=== PATIENT | female | born 1960 | race Caucasian/White ===

== ENCOUNTER 2018-03-18 20:22 | Inpatient (IN) | payer OTHER ==
[~2018-03-18] VITALS: Ht 167.6 cm; Wt 64.2 kg
[2018-03-18] MEDS ORDERED: NIFE30TA83 PO (20:58)
[2018-03-18] MEDS ORDERED: SIMV10TA6 PO (20:58)
[2018-03-18] MEDS ORDERED: NIFEDIPINE XL 30MG TAB PO ONE (21:15)
[2018-03-18] MEDS ORDERED: ASPIRIN 81MG TABLET PO ONE (21:15)
[2018-03-18 21:46] LABS: CLARITY URINE CLEAR (CLEAR); COLOR URINE YELLOW (YELLOW); KETONES URINE NEGATIVE (NEGATIVE); LEUKOCYTE ESTERASE URINE NEGATIVE (NEGATIVE); NITRITE URINE NEGATIVE (NEGATIVE); OCCULT BLOOD URINE 1+ (NEGATIVE); PH URINE 7.5 (4.5-8.0); PROTEIN URINE NEGATIVE (NEGATIVE); SPECIFIC GRAVITY URINE 1.005 (1.005-1.030); UROBILINOGEN URINE 0.2 E.U./dL (0.2-1.0)
[2018-03-18 21:58] LABS: EOSINOPHILS % 6.4 % (0.0-5.0); HEMATOCRIT. 40.4 % (36.0-48.0); LYMPHOCYTES % 50.7 % (20.0-50.0); MEAN CORPUSCULAR HEMOGLOBIN 29.4 pg (28.0-32.0); MEAN CORPUSCULAR VOLUME 84.6 fL (81.0-99.0); MEAN PLATELET VOLUME 9.2 fl (7.4-10.4); MONOCYTES % 6.6 % (2.0-8.0); NEUTROPHILS % 35.3 % (40.0-76.0); PLATELET 277 x1000/uL (130-400); RED BLOOD CELL COUNT 4.77 mill/uL (4.2-5.4); RED CELL DISTRIBUTION WIDTH 13.7 % (11.6-14.6)
[2018-03-18 22:02] LABS: CHLORIDE 105 mEq/L (98-107)
[2018-03-18 22:06] LABS: PARTIAL THROMBOPLASTIN TIME 25.8 sec (23.4-31.0); PROTHROMBIN TIME 9.7 sec (9.1-11.1)
[2018-03-19 02:00] VITALS: BP 129/68
[2018-03-19 04:00] VITALS: BP 129/68
[2018-03-19] MEDS ORDERED: NON FORMULARY PATIENT HOME MED XX SCH (05:15)
[2018-03-19] MEDS ORDERED: ACETAMINOPHEN 325MG TABLET PO PRN (05:15)
[2018-03-19 08:00] VITALS: BP 132/73
[2018-03-19] MEDS: ASPIRIN 81MG TABLET PO SCH (08:51)
[2018-03-19] MEDS: NIFEDIPINE XL 30MG TAB PO SCH (08:52)
[2018-03-19 10:49] LABS: BASOPHILS % 1.3 % (0.0-2.0); EOSINOPHILS % 6.7 % (0.0-5.0); HEMATOCRIT. 39.4 % (36.0-48.0); HEMOGLOBIN. 13.3 g/dL (12.0-16.0); LYMPHOCYTES % 47.4 % (20.0-50.0); MEAN CORPUSCULAR HEMOGLOBIN 28.7 pg (28.0-32.0); MEAN CORPUSCULAR VOLUME 84.9 fL (81.0-99.0); MEAN PLATELET VOLUME 8.9 fl (7.4-10.4); NEUTROPHILS % 36.6 % (40.0-76.0); PLATELET 251 x1000/uL (130-400); RED BLOOD CELL COUNT 4.64 mill/uL (4.2-5.4); RED CELL DISTRIBUTION WIDTH 13.7 % (11.6-14.6)
[2018-03-19 11:02] LABS: CHLORIDE 106 mEq/L (98-107)
[2018-03-19 11:08] LABS: LDL CHOLESTEROL 85 mg/dL (5-100)
[2018-03-19 11:10] LABS: HDL CHOLESTEROL 44 mg/dL (40-59)
[2018-03-19 11:14] LABS: *AMPHETAMINES SCREEN URINE NEGATIVE (NEGATIVE); *BENZODIAZEPINES SCREEN URINE NEGATIVE (NEGATIVE); *COCAINE SCREEN URINE NEGATIVE (NEGATIVE)
[2018-03-19 11:15] LABS: CANNABINOID URINE SCREEN NEGATIVE (NEGATIVE); PHENCYCLIDINE URINE SCREEN NEGATIVE (NEGATIVE)
[2018-03-19 11:39] LABS: *BARBITURATES SCREEN URINE NEGATIVE (NEGATIVE); METHADONE URINE SCREEN NEGATIVE (NEGATIVE); OPIATES URINE SCREEN NEGATIVE (NEGATIVE)
[2018-03-19 12:00] VITALS: BP 110/60
[2018-03-19 15:37] VITALS: BP 124/68
[2018-03-19 18:07] LABS: CREATINE KINASE MB FRACTION 1.6 ng/mL (0.5-3.6)
[2018-03-19 20:00] VITALS: BP 117/71
[2018-03-19] MEDS ORDERED: ATORVASTATIN CALCIUM 10MG TABLET PO SCH (21:00)
[2018-03-20] VITALS: BP 112/66
[2018-03-20 04:00] VITALS: BP 128/75
[2018-03-20 08:00] VITALS: BP 131/61
[2018-03-20] MEDS: ASPIRIN 81MG TABLET PO SCH (09:31)
[2018-03-20] MEDS: NIFEDIPINE XL 30MG TAB PO SCH (09:31)
[2018-03-20] MEDS ORDERED: LOSARTAN POTASSIUM 25 MG TABLET PO SCH (09:45)
[2018-03-20] MEDS ORDERED: IOHEXOL-300 100 ML BOTTLE ONE (11:22)
[2018-03-20 12:00] VITALS: BP 138/61
[2018-03-20] MEDS ORDERED: LOSA25TA3 PO (14:36)
[2018-03-20] MEDS ORDERED: ASPI-1160 PO (14:36)
[2018-03-20] MEDS ORDERED: METO-385 MT (14:36)
[2018-03-20] MEDS ORDERED: ATOR20TA65 MT (14:36)
[2018-03-20 15:06] VITALS: BP 134/60
[2018-03-20 15:30] LABS: BASOPHILS % 1.5 % (0.0-2.0); EOSINOPHILS % 6.2 % (0.0-5.0); HEMATOCRIT. 40.7 % (36.0-48.0); HEMOGLOBIN. 13.7 g/dL (12.0-16.0); MEAN CORPUSCULAR HEMOGLOBIN 28.6 pg (28.0-32.0); MEAN CORPUSCULAR VOLUME 85.2 fL (81.0-99.0); MEAN PLATELET VOLUME 9.5 fl (7.4-10.4); MONOCYTES % 4.8 % (2.0-8.0); NEUTROPHILS % 35.5 % (40.0-76.0); PLATELET 258 x1000/uL (130-400); RED BLOOD CELL COUNT 4.77 mill/uL (4.2-5.4); RED CELL DISTRIBUTION WIDTH 13.9 % (11.6-14.6)
[2018-03-20 15:57] LABS: CHLORIDE 105 mEq/L (98-107)
[2018-03-20 16:00] VITALS: BP 132/57
[2018-03-20] MEDS ORDERED: METOPROLOL TARTRATE 25MG TABLET PO SCH (21:00)
== END 2018-03-20 18:15 | disposition home or self-care (01) | DRG 199 ==
LOC: ER 20:22 → 6WST 23:43 → EDBEDREQTM 23:52 → EDBEDREQ 23:52 → ENRESERV 03-19 01:17
PROVIDERS: ADMIT Internal Medicine; ATTEND Internal Medicine
DX: I16.1 Hypertensive emergency (principal); E78.00 Pure hypercholesterolemia, unspecified; E78.1 Pure hyperglyceridemia; E78.5 Hyperlipidemia, unspecified; I10 Essential (primary) hypertension; I25.89 Other forms of chronic ischemic heart disease
CPT/HCPCS: 36415; 71045; 71260; 80048; 80061; 80305; 82553; 83880; 84443; 84484; 85379; 93005; 93306; 93970; 99285; Q9967

== ENCOUNTER → 2021-09-01 | Emergency (ER) | payer SELFPAY ==
[~2021-09-01] VITALS: Ht 154.9 cm; Wt 64.0 kg
[~2021-09-01] MED LIST: ACET-2708 MT; ASPI-1160 PO; ATOR20TA65 MT; IBUP-2029 MT; IBUPROFEN 600MG TABLET PO ONE; LOSA25TA3 PO; METO-385 MT
[2021-09-01 12:52] VITALS: BP 141/67
== END ==
LOC: ER 12:29
DX: S52.591A Other fractures of lower end of right radius, initial encounter for closed fracture (principal); W18.39XA Other fall on same level, initial encounter; Y93.89 Activity, other specified; Y92.89 Other specified places as the place of occurrence of the external cause; Y99.8 Other external cause status; E78.00 Pure hypercholesterolemia, unspecified; I10 Essential (primary) hypertension; Z79.899 Other long term (current) drug therapy
CPT/HCPCS: 29125; 73110; 73130; 99284